=== PATIENT | female | born 1945 | race Caucasian/White ===

== ENCOUNTER 2020-12-26 08:15 | Emergency (ER) | payer MEDICAID ==
[~2020-12-26] VITALS: Ht 152.4 cm; Wt 48.0 kg
[2020-12-26 08:21] VITALS: BP 166/65
[2020-12-26] MEDS ORDERED: ONDANSETRON HCL 4MG/2ML INJ IV STA (09:30)
[2020-12-26 10:15] LABS: EOSINOPHILS % 3.1 % (0.0-5.0); HEMOGLOBIN. 12.7 g/dL (12.0-16.0); LYMPHOCYTES % 27.6 % (20.0-50.0); MEAN CORPUSCULAR HEMOGLOBIN 22.6 pg (28.0-32.0); MEAN CORPUSCULAR VOLUME 71.2 fL (81.0-99.0); MEAN PLATELET VOLUME 8.6 fl (7.4-10.4); MONOCYTES % 9.6 % (2.0-8.0); NEUTROPHILS % 58.7 % (40.0-76.0); PLATELET 258 x1000/uL (130-400); RED BLOOD CELL COUNT 5.62 mill/uL (4.2-5.4); RED CELL DISTRIBUTION WIDTH 14.9 % (11.6-14.6)
[2020-12-26 10:19] LABS: CLARITY URINE CLEAR (CLEAR); COLOR URINE YELLOW (YELLOW); KETONES URINE NEGATIVE (NEGATIVE); LEUKOCYTE ESTERASE URINE TRACE (NEGATIVE); NITRITE URINE NEGATIVE (NEGATIVE); OCCULT BLOOD URINE TRACE (NEGATIVE); PROTEIN URINE 1+ (NEGATIVE); SPECIFIC GRAVITY URINE 1.012 (1.005-1.030); UROBILINOGEN URINE 0.2 E.U./dL (0.2-1.0)
[2020-12-26 10:21] LABS: CHLORIDE 109 mEq/L (98-107)
[2020-12-26 10:25] LABS: INR 0.9; PROTHROMBIN TIME 10.2 sec (9.6-11.0)
[2020-12-26] MEDS ORDERED: IOHEXOL-300 100 ML BOTTLE ONE (10:58)
[2020-12-26] MEDS ORDERED: DOCU-138 MT (12:30)
[2020-12-26] MEDS ORDERED: OMEP20CA14 MT (12:30)
== END 2020-12-26 13:17 | disposition home or self-care (01) ==
LOC: ER 08:15
DX: R10.9 Unspecified abdominal pain (principal); K21.9 Gastro-esophageal reflux disease without esophagitis; K59.00 Constipation, unspecified; I10 Essential (primary) hypertension; Z87.891 Personal history of nicotine dependence
CPT/HCPCS: 36415; 71045; 74176; 80053; 81003; 83605; 83690; 84484; 85025; 85610; 93005; 96374; 99285; J2405; Q9967; Z7610

== ENCOUNTER 2022-06-11 14:33 | Emergency (ER) | payer MEDICAID ==
[~2022-06-11] VITALS: Ht 154.9 cm; Wt 76.0 kg
[~2022-06-11 14:33] MED LIST: DOCU-138 MT; OMEP20CA14 MT
[2022-06-11 17:14] LABS: INR 0.9; PROTHROMBIN TIME 10.1 sec (9.6-11.0)
[2022-06-11 17:17] LABS: BASOPHILS % 0.3 % (0.0-2.0); EOSINOPHILS % 3.3 % (0.0-5.0); HEMOGLOBIN. 12.7 g/dL (12.0-16.0); LYMPHOCYTES % 26.5 % (20.0-50.0); MEAN CORPUSCULAR HEMOGLOBIN 22.6 pg (28.0-32.0); MEAN CORPUSCULAR VOLUME 71.3 fL (81.0-99.0); MEAN PLATELET VOLUME 8.7 fl (7.4-10.4); MONOCYTES % 12.7 % (2.0-8.0); NEUTROPHILS % 57.2 % (40.0-76.0); PLATELET 271 x1000/uL (130-400); RED BLOOD CELL COUNT 5.61 mill/uL (4.2-5.4); RED CELL DISTRIBUTION WIDTH 14.5 % (11.6-14.6)
[2022-06-11 17:19] LABS: CHLORIDE 103 mEq/L (98-107)
[2022-06-11] MEDS ORDERED: MORPHINE SULFATE 4 MG/ML CPJ (NOT FOR IM USE) IV ONE (17:30)
[2022-06-11] MEDS ORDERED: ACET-2708 MT (20:04)
[2022-06-11 20:19] LABS: CLARITY URINE CLEAR (CLEAR); COLOR URINE YELLOW (YELLOW); KETONES URINE NEGATIVE (NEGATIVE); LEUKOCYTE ESTERASE URINE NEGATIVE (NEGATIVE); NITRITE URINE NEGATIVE (NEGATIVE); OCCULT BLOOD URINE NEGATIVE (NEGATIVE); PROTEIN URINE TRACE (NEGATIVE); SPECIFIC GRAVITY URINE 1.006 (1.005-1.030); UROBILINOGEN URINE 0.2 E.U./dL (0.2-1.0)
[2022-06-11 20:41] VITALS: BP 158/69
== END 2022-06-11 20:43 | disposition home or self-care (01) ==
LOC: ER 14:33
DX: R10.84 Generalized abdominal pain (principal); R19.7 Diarrhea, unspecified; R11.0 Nausea; I10 Essential (primary) hypertension
CPT/HCPCS: 36415; 71045; 74176; 80053; 81003; 83605; 83690; 85025; 85610; 93005; 96374; 99285; J2270

== ENCOUNTER 2022-11-28 11:45 | Emergency (ER) | payer OTHER ==
[~2022-11-28] VITALS: Ht 152.4 cm; Wt 54.0 kg
[~2022-11-28 11:45] MED LIST changes: +ACET-2708 MT
[2022-11-28 11:55] VITALS: BP 165/77; PULSE 80; RESP 20; TEMP 98.4; O2SAT 100
== END 2022-11-28 15:12 | disposition left against medical advice (07) ==
LOC: ER 11:45
DX: Z53.21 Procedure and treatment not carried out due to patient leaving prior to being seen by health care provider (principal)
CPT/HCPCS: 99281